=== PATIENT | female | born 1950 | race Caucasian/White ===

== ENCOUNTER 2023-01-23 11:06 | Observation (INO) ==
[2023-01-23] MEDS ORDERED: NS 0.9% 1000 ml BAG 1,000 ML IV ONE (12:04)
[2023-01-23 12:34] LABS: ABS Eosinophils 0.1 10^3/uL (0.0-0.5); ABS Lymphocytes 1.2 10^3/uL (1.0-4.8); ABS Monocytes 0.6 10^3/uL (0.0-0.9); ABS Neutrophils 8.2 10^3/uL (1.5-7.6); ABS Nucleated RBC 0.01 10^3/ul; Eosinophil % 0.7 %; Hemoglobin 14.3 g/dL (11.5-14.3); Lymphocyte % 12.2 %; Mean Corpuscular Hemoglobin 32.2 pg (27-33); Mean Corpuscular Hgb Conc 34.2 g/dL (31-36); Mean Corpuscular Volume 94.2 fL (80-97); Mean Platelet Volume 10.2 fL (7.5-11.2); Nucleated Red Blood Cells % 0.1 /100 WBC (0.0-0.4); Platelet Count 170 10^3/uL (150-450); Red Blood Count 4.45 10^6/uL (3.63-4.92); Red Cell Distribution Width 13.2 % (12-17); White Blood Count 10.2 10^3/uL (3.8-11.8)
[2023-01-23 12:42] LABS: Urine Appearance Clear; Urine Bilirubin Negative (Negative); Urine Blood 1+ (Negative); Urine Color Yellow; Urine Glucose Negative (Negative); Urine Ketones Trace (Negative); Urine Nitrite Negative (Negative); Urine Protein Negative (Negative); Urine Urobilinogen Negative (Negative)
[2023-01-23 12:50] LABS: Albumin 3.9 g/dL (3.2-5.2); Albumin/Globulin Ratio 1.4 (1-3); Calcium 10.1 mg/dL (8.6-10.3); Creatinine, Serum 1.07 mg/dL (0.51-0.95); Globulin 2.8 g/dL (2-4); Potassium 3.9 mmol/L (3.5-5.0); Total Bilirubin 1.5 mg/dL (0.2-1.0); Total Protein 6.7 g/dL (6.4-8.9); eGFR CKD-EPI 55.5 (>60)
[2023-01-23] MEDS ORDERED: Iodixanol (CONTRAST) 320 MG/ML 100 ML SDV IV ONE (13:00)
[2023-01-23 13:07] LABS: Urine Bacteria Absent (Absent); Urine Red Blood Cell 3+(>10/hpf) (Absent); Urine Squamous Epithelial Cell Present (Absent); Urine White Blood Cell 1+(6-10/hpf) (Absent)
[2023-01-23 13:23] LABS: C Reactive Protein 182.47 mg/L (<8.01)
[2023-01-23 14:09] LABS: INR 1.75 (0.88-1.18)
[2023-01-23] MEDS ORDERED: Piperacillin/Tazobac 3.375 BAG 3.375 GM/100 ML BAG IV ONE (14:38)
[2023-01-23] MEDS ORDERED: Acetaminophen IV 1 GM/100ML 1,000 MG/100 ML BAG IV ONE (14:52)
[2023-01-23] MEDS ORDERED: Morphine 4 MG/ML VIAL (1 ml) IV ONE (14:52)
[2023-01-23] MEDS ORDERED: Ondansetron 4 mg VIAL 2 MG/ML 2 ml VIAL IV ONE (14:52)
[2023-01-23] MEDS ORDERED: Acetaminophen IV 1 GM/100ML 1,000 MG/100 ML BAG IV PRN (16:05)
[2023-01-23] MEDS ORDERED: Morphine 2 MG/ML SYRINGE IV PRN (16:06)
[2023-01-23] MEDS ORDERED: NS 0.9% 1000 ml BAG 1,000 ML IV SCH (16:15)
[2023-01-23] MEDS: Piperacillin/Tazobac 3.375 BAG 3.375 GM/100 ML BAG IV SCH (20:17)
[2023-01-23] MEDS: Heparin 5000 UNITS/ML 1 mL VIAL SUBCUT SCH (21:48)
[2023-01-24 05:35] LABS: ABS Eosinophils 0.1 10^3/uL (0.0-0.5); ABS Lymphocytes 1.2 10^3/uL (1.0-4.8); ABS Monocytes 0.5 10^3/uL (0.0-0.9); ABS Neutrophils 5.9 10^3/uL (1.5-7.6); Hematocrit 38.7 % (35-45); Hemoglobin 13.2 g/dL (11.5-14.3); Lymphocyte % 15.7 %; Mean Corpuscular Hemoglobin 32.4 pg (27-33); Mean Corpuscular Hgb Conc 34.2 g/dL (31-36); Mean Corpuscular Volume 94.8 fL (80-97); Mean Platelet Volume 9.6 fL (7.5-11.2); Platelet Count 164 10^3/uL (150-450); Red Blood Count 4.09 10^6/uL (3.63-4.92); Red Cell Distribution Width 13.1 % (12-17); White Blood Count 7.8 10^3/uL (3.8-11.8)
[2023-01-24] MEDS: Piperacillin/Tazobac 3.375 BAG 3.375 GM/100 ML BAG IV SCH (05:50)
[2023-01-24 05:51] LABS: Albumin 3.3 g/dL (3.2-5.2); Albumin/Globulin Ratio 1.4 (1-3); Calcium 8.5 mg/dL (8.6-10.3); Creatinine, Serum 0.88 mg/dL (0.51-0.95); Globulin 2.4 g/dL (2-4); Potassium 3.5 mmol/L (3.5-5.0); Total Bilirubin 1.6 mg/dL (0.2-1.0); Total Protein 5.7 g/dL (6.4-8.9); eGFR CKD-EPI 70.2 (>60)
[2023-01-24] MEDS: Heparin 5000 UNITS/ML 1 mL VIAL SUBCUT SCH (08:08)
[2023-01-24 10:36] VITALS: BP 122/46
== END 2023-01-24 10:02 | disposition short-term general hospital (02) ==
LOC: EDHOLD 11:06 → ED 11:06 → EDHOLD 01-24 10:15
PROVIDERS: ADMIT Surgery; ATTEND Surgery